=== PATIENT | male | born 1930 | race Two or more races ===

== ENCOUNTER 2017-07-22 06:05 | Inpatient (IN) | payer MEDICARE, MEDICAID ==
[~2017-07-22] VITALS: Ht 160 cm; Wt 70.0 kg
[~2017-07-22 06:05] MED LIST: RANI150T23 PO
[2017-07-22] MEDS ORDERED: MULT-758 PO (06:27)
[2017-07-22] MEDS ORDERED: ASPI-515 PO (06:27)
[2017-07-22] MEDS ORDERED: SODIUM CHLORIDE 0.9% 1,000ML IVBOLUS ONE (07:00)
[2017-07-22] MEDS ORDERED: SODIUM CHLORIDE FLUSH 10ML SYR IVF ONE (07:00)
[2017-07-22 07:01] LABS: BASOPHILS # (AUTO) 0.01 x10^3/uL (0-0.1); BASOPHILS % (AUTO) 0 % (0-1); EOSINOPHILS # (AUTO) 0.01 x10^3/uL (0-0.4); EOSINOPHILS % (AUTO) 0 % (1-7); LYMPHOCYTES # (AUTO) 0.75 x10^3/uL (1-3.4); LYMPHOCYTES % (AUTO) 10 % (22-44); MD NO; MEAN CORPUSCULAR HEMOGLOBIN 31.7 pg (27.5-34.5); MEAN CORPUSCULAR HGB CONC 33.3 g/dL (33.2-36.2); MEAN CORPUSCULAR VOLUME 95.3 fL (81-97); MEAN PLATELET VOLUME 8.9 fL (7.4-10.4); MONOCYTES # (AUTO) 0.73 x10^3/uL (0.2-0.8); MONOCYTES % (AUTO) 9 % (2-9); NEUTROPHILS # (AUTO) 6.34 x10^3/uL (1.8-6.8); NEUTROPHILS % (AUTO) 81 % (42-75); PLATELET COUNT 169 x10^3/uL (130-400); RED BLOOD COUNT 4.78 x10^6/uL (4.38-5.82); RED CELL DISTRIBUTION WIDTH 14.9 % (9.4-14.8)
[2017-07-22 07:10] LABS: CHLORIDE 104 mmol/L (98-107)
[2017-07-22 07:11] LABS: ALANINE AMINOTRANSFERASE 15 U/L (12-78); ALBUMIN 2.8 g/dL (3.4-5.0); ANION GAP 7 mmol/L (5-15); CALCIUM 9.2 mg/dL (8.5-10.1); CREATININE 1.34 mg/dL (0.7-1.3)
[2017-07-22 07:13] LABS: ALKALINE PHOSPHATASE 83 U/L (45-117); BILIRUBIN,TOTAL 2.4 mg/dL (0.2-1.0); TOTAL PROTEIN 7.7 g/dL (6.4-8.2)
[2017-07-22 07:21] LABS: MICROSCOPIC INDICATED
[2017-07-22 07:31] LABS: CULTURE INDICATED? NO
[2017-07-22] MEDS ORDERED: PINK LADY ENEMA 1,000 ML PR ONE (09:00)
[2017-07-22] MEDS ORDERED: DIAZEPAM 5 MG/ML, 2ML IM ONE (11:00)
[2017-07-22 13:23] VITALS: BP 150/84
[2017-07-22] MEDS ORDERED: ONDANSETRON 2MG/ML, 2ML IVPush PRN ×2 (13:30→22:00)
[2017-07-22] MEDS ORDERED: ENOXAPARIN 40 MG/0.4 ML SQ SCH (13:30)
[2017-07-22] MEDS ORDERED: ONDANSETRON ODT 4 MG PO PRN (13:30)
[2017-07-22] MEDS ORDERED: LABETALOL 5MG/ML, 20ML IVPush PRN (13:30)
[2017-07-22] MEDS ORDERED: BISACODYL 10 MG SUPP PR PRN (13:30)
[2017-07-22 14:34] LABS: FREE T4 (FREE THYROXINE) 1.89 ng/dL (0.76-1.46); THYROID STIMULATING HORMONE 3.25 mIU/L (0.358-3.740)
[2017-07-22] MEDS ORDERED: OMNIPAQUE 350 MG/ML, 100ML BOTTLE ONE (15:00)
[2017-07-22] MEDS: PANTOPRAZOLE 40 MG IV IVPush SCH (15:08)
[2017-07-22] MEDS ORDERED: D5%-LACTATED RINGERS 1,000 ML IV SCH (17:00)
[2017-07-22] MEDS ORDERED: MIDAZOLAM 1 MG/ML, 2ML ONE (18:17)
[2017-07-22] MEDS ORDERED: FENTANYL PF 100 MCG/2ML ONE (18:18)
[2017-07-22] MEDS ORDERED: AMIODARONE 50 MG/ML, 3ML ONE ×2 (18:19→22:04)
[2017-07-22] MEDS ORDERED: SUCCINYLCHOLINE 20 MG/ML, 10ML ONE (18:19)
[2017-07-22] MEDS ORDERED: NEOSTIGMINE 1 MG/ML, 10ML ONE (18:19)
[2017-07-22] MEDS ORDERED: PROPOFOL 10 MG/ML, 20ML ONE (18:19)
[2017-07-22] MEDS ORDERED: ONDANSETRON 2MG/ML, 2ML ONE (18:19)
[2017-07-22] MEDS ORDERED: DEXAMETHASONE 4 MG/ML, 1ML ONE (18:19)
[2017-07-22] MEDS ORDERED: KETOROLAC 30 MG/1 ML ONE (18:19)
[2017-07-22] MEDS ORDERED: ROCURONIUM 10 MG/ML,10ML ONE (18:19)
[2017-07-22] MEDS ORDERED: GLYCOPYRROLATE 0.2MG/1ML, 5ML ONE (18:19)
[2017-07-22] MEDS ORDERED: CEFTRIAXONE 1,000 MG ONE (18:33)
[2017-07-22] MEDS ORDERED: CEFOTETAN PMX 1GM/50ML 50 ML ONE ×2 (18:35→18:36)
[2017-07-22] MEDS ORDERED: ALBUTEROL SULFATE 2.5 MG/3 ML NPPB PRN (19:00)
[2017-07-22] MEDS ORDERED: FENTANYL PF 100 MCG/2ML IV PRN (19:00)
[2017-07-22] MEDS ORDERED: ACETAMINOPHEN 325 MG TABLET PO PRN (19:00)
[2017-07-22] MEDS ORDERED: PROMETHAZINE 25 MG/ML, 1ML IV PRN (19:00)
[2017-07-22] MEDS ORDERED: EPHEDRINE 50 MG/ML, 1ML IVPush PRN (19:00)
[2017-07-22] MEDS ORDERED: OXYcodone 5 MG/5 ML ORAL.SOL UDC PO PRN (19:00)
[2017-07-22] MEDS ORDERED: hydrALAzine 20 MG/ML, 1ML IV PRN (19:00)
[2017-07-22] MEDS ORDERED: LABETALOL 5MG/ML, 20ML IV PRN (19:00)
[2017-07-22] MEDS ORDERED: METOPROLOL 1 MG/ML, 5ML IV PRN (19:00)
[2017-07-22] MEDS ORDERED: HALOPERIDOL 5 MG/ML IV PRN (19:00)
[2017-07-22] MEDS ORDERED: MIDAZOLAM 1 MG/ML, 2ML IV PRN (19:00)
[2017-07-22] MEDS ORDERED: ALBUTEROL/IPRATROPIUM 2.5MG/0.5MG, 3 ML NPPB PRN (19:00)
[2017-07-22] MEDS ORDERED: HYDROcodone/APAP 7.5-325MG/15ML UDC PO PRN (19:00)
[2017-07-22] MEDS ORDERED: HYDROmorphone 1 MG/ML, 1ML ONE (20:10)
[2017-07-22] MEDS: HYDROmorphone 1 MG/ML, 1ML IV PRN ×2 (20:14→20:24)
[2017-07-22] MEDS: PIPERACILLIN/TAZO/PMX 3.375GM 50 ML IV SCH (21:37)
[2017-07-22] MEDS ORDERED: morphine SULFATE 10 MG/ML, 1ML IVPush PRN (22:00)
[2017-07-22] MEDS ORDERED: LACTATED RINGERS 1,000 ML IV SCH (22:00)
[2017-07-22 22:39] LABS: BASOPHILS # (AUTO) 0.01 x10^3/uL (0-0.1); BASOPHILS % (AUTO) 0 % (0-1); EOSINOPHILS # (AUTO) 0.01 x10^3/uL (0-0.4); EOSINOPHILS % (AUTO) 0 % (1-7); LYMPHOCYTES # (AUTO) 0.36 x10^3/uL (1-3.4); LYMPHOCYTES % (AUTO) 10 % (22-44); MD NO; MEAN CORPUSCULAR HGB CONC 34.1 g/dL (33.2-36.2); MEAN CORPUSCULAR VOLUME 96.7 fL (81-97); MEAN PLATELET VOLUME 8.7 fL (7.4-10.4); MONOCYTES # (AUTO) 0.66 x10^3/uL (0.2-0.8); MONOCYTES % (AUTO) 18 % (2-9); NEUTROPHILS # (AUTO) 2.67 x10^3/uL (1.8-6.8); NEUTROPHILS % (AUTO) 72 % (42-75); PLATELET COUNT 156 x10^3/uL (130-400); RED BLOOD COUNT 4.09 x10^6/uL (4.38-5.82); RED CELL DISTRIBUTION WIDTH 15.1 % (9.4-14.8)
[2017-07-22] MEDS: MORPHINE 30MG/30ML PCA.SYR IV PRN (22:39)
[2017-07-22 22:44] LABS: ANION GAP 7 mmol/L (5-15); CALCIUM 8.3 mg/dL (8.5-10.1); CHLORIDE 104 mmol/L (98-107); CREATININE 1.46 mg/dL (0.7-1.3)
[2017-07-23 00:27] VITALS: BP 114/73
[2017-07-23] MEDS: D5%-LACTATED RINGERS 1,000 ML IV SCH ×3 (01:37→18:49)
[2017-07-23] MEDS: PIPERACILLIN/TAZO/PMX 3.375GM 50 ML IV SCH ×4 (03:59→21:50)
[2017-07-23] MEDS: PANTOPRAZOLE 40 MG IV IVPush SCH ×2 (03:59→16:06)
[2017-07-23 05:28] LABS: MEAN CORPUSCULAR HEMOGLOBIN 32.3 pg (27.5-34.5); MEAN CORPUSCULAR HGB CONC 33.6 g/dL (33.2-36.2); MEAN CORPUSCULAR VOLUME 96.1 fL (81-97); MEAN PLATELET VOLUME 8.6 fL (7.4-10.4); PLATELET COUNT 172 x10^3/uL (130-400); RED BLOOD COUNT 4.14 x10^6/uL (4.38-5.82)
[2017-07-23 05:29] LABS: ANION GAP 9 mmol/L (5-15); CALCIUM 8.3 mg/dL (8.5-10.1); CHLORIDE 107 mmol/L (98-107)
[2017-07-23 05:33] LABS: ALANINE AMINOTRANSFERASE 13 U/L (12-78); ALKALINE PHOSPHATASE 60 U/L (45-117); BILIRUBIN,TOTAL 4.2 mg/dL (0.2-1.0); CREATININE 1.42 mg/dL (0.7-1.3); TOTAL PROTEIN 5.8 g/dL (6.4-8.2)
[2017-07-23 05:54] LABS: MD YES
[2017-07-23 05:57] LABS: LYMPH#(MANUAL) 0.78 x10^3/uL (1-3.4); LYMPHS% (MANUAL) 13 % (22-44); MONOS% (MANUAL) 10 % (2-9)
[2017-07-23 05:59] LABS: <PLATELET ESTIMATE> ADEQUATE; <PLT MORPHOLOGY> NORMAL PLT MORPH; ANISOCYTOSIS 1+
[2017-07-23 06:01] LABS: BANDS%(MANUAL) 10 % (0-7); SEG#(MANUAL) 4.02 x10^3/uL (1.8-6.8); SEGS% (MANUAL) 67 % (42-75)
[2017-07-23 07:12] VITALS: BP 123/75
[2017-07-23] MEDS: ENOXAPARIN 40 MG/0.4 ML SQ SCH (09:19)
[2017-07-23] MEDS: MULTIVITAMINS/MINERALS TABLET PO SCH (09:19)
[2017-07-23 12:32] VITALS: BP 102/67
[2017-07-23 20:21] VITALS: BP 102/67
[2017-07-24] MEDS: D5%-LACTATED RINGERS 1,000 ML IV SCH ×3 (03:03→23:00)
[2017-07-24] MEDS: PIPERACILLIN/TAZO/PMX 3.375GM 50 ML IV SCH ×4 (03:47→23:00)
[2017-07-24] MEDS: PANTOPRAZOLE 40 MG IV IVPush SCH ×2 (03:47→16:40)
[2017-07-24 04:03] VITALS: BP 114/74
[2017-07-24 05:27] LABS: BASOPHILS # (AUTO) 0.03 x10^3/uL (0-0.1); BASOPHILS % (AUTO) 0 % (0-1); EOSINOPHILS # (AUTO) 0.01 x10^3/uL (0-0.4); EOSINOPHILS % (AUTO) 0 % (1-7); LYMPHOCYTES # (AUTO) 0.62 x10^3/uL (1-3.4); LYMPHOCYTES % (AUTO) 8 % (22-44); MD NO; MEAN CORPUSCULAR HEMOGLOBIN 32.6 pg (27.5-34.5); MEAN CORPUSCULAR HGB CONC 33.6 g/dL (33.2-36.2); MEAN CORPUSCULAR VOLUME 96.9 fL (81-97); MEAN PLATELET VOLUME 8.9 fL (7.4-10.4); MONOCYTES # (AUTO) 0.96 x10^3/uL (0.2-0.8); MONOCYTES % (AUTO) 12 % (2-9); NEUTROPHILS # (AUTO) 6.48 x10^3/uL (1.8-6.8); NEUTROPHILS % (AUTO) 80 % (42-75); PLATELET COUNT 146 x10^3/uL (130-400)
[2017-07-24 05:28] LABS: ANION GAP 9 mmol/L (5-15); CALCIUM 8.8 mg/dL (8.5-10.1); CHLORIDE 107 mmol/L (98-107); CREATININE 1.32 mg/dL (0.7-1.3)
[2017-07-24 07:30] VITALS: BP 113/69
[2017-07-24] MEDS: MULTIVITAMINS/MINERALS TABLET PO SCH (09:53)
[2017-07-24] MEDS: ENOXAPARIN 40 MG/0.4 ML SQ SCH (09:53)
[2017-07-24 14:00] VITALS: BP 125/70
[2017-07-24] MEDS: MORPHINE 30MG/30ML PCA.SYR IV PRN (16:46)
[2017-07-24 19:57] VITALS: BP 124/77
[2017-07-25 00:43] VITALS: BP 138/75
[2017-07-25] MEDS: PANTOPRAZOLE 40 MG IV IVPush SCH ×2 (05:13→21:45)
[2017-07-25] MEDS: PIPERACILLIN/TAZO/PMX 3.375GM 50 ML IV SCH ×2 (05:13→11:40)
[2017-07-25 05:28] LABS: BASOPHILS # (AUTO) 0.01 x10^3/uL (0-0.1); BASOPHILS % (AUTO) 0 % (0-1); EOSINOPHILS % (AUTO) 0 % (1-7); LYMPHOCYTES # (AUTO) 0.89 x10^3/uL (1-3.4); LYMPHOCYTES % (AUTO) 12 % (22-44); MD NO; MEAN CORPUSCULAR HEMOGLOBIN 32.4 pg (27.5-34.5); MEAN CORPUSCULAR HGB CONC 33.4 g/dL (33.2-36.2); MEAN CORPUSCULAR VOLUME 97.1 fL (81-97); MEAN PLATELET VOLUME 8.6 fL (7.4-10.4); MONOCYTES % (AUTO) 12 % (2-9); NEUTROPHILS # (AUTO) 5.78 x10^3/uL (1.8-6.8); NEUTROPHILS % (AUTO) 76 % (42-75); PLATELET COUNT 165 x10^3/uL (130-400); RED BLOOD COUNT 3.79 x10^6/uL (4.38-5.82); RED CELL DISTRIBUTION WIDTH 15.3 % (9.4-14.8)
[2017-07-25 05:35] LABS: ALANINE AMINOTRANSFERASE 17 U/L (12-78); ALBUMIN 1.9 g/dL (3.4-5.0); ANION GAP 7 mmol/L (5-15); CALCIUM 8.5 mg/dL (8.5-10.1); CHLORIDE 107 mmol/L (98-107); CREATININE 1.25 mg/dL (0.7-1.3)
[2017-07-25 05:37] LABS: ALKALINE PHOSPHATASE 57 U/L (45-117); BILIRUBIN,TOTAL 4.4 mg/dL (0.2-1.0); TOTAL PROTEIN 5.9 g/dL (6.4-8.2)
[2017-07-25 06:54] VITALS: BP 128/73
[2017-07-25 09:02] LABS: BILIRUBIN, DIRECT 3.4 mg/dL (0.1-0.2); BILIRUBIN,INDIRECT 0.9 mg/dL (0.0-2.0); BILIRUBIN,TOTAL 4.3 mg/dL (0.2-1.0)
[2017-07-25 09:22] LABS: ABSOLUTE RETICS # 0.06 x10^6/uL (0.5-1.5); RED BLOOD COUNT 3.76 x10^6/uL (4.38-5.82); RETICULOCYTE COUNT % 1.59 % (0.5-1.5)
[2017-07-25] MEDS: MULTIVITAMINS/MINERALS TABLET PO SCH (10:22)
[2017-07-25] MEDS: D5%-LACTATED RINGERS 1,000 ML IV SCH (10:22)
[2017-07-25] MEDS: ENOXAPARIN 40 MG/0.4 ML SQ SCH (10:22)
[2017-07-25] MEDS: PIPERACILLIN/TAZO/PMX 4.5GM 100 ML IV SCH ×2 (11:30→21:44)
[2017-07-25 12:31] VITALS: BP 118/59
[2017-07-25 19:39] VITALS: BP 116/71
[2017-07-26] MEDS ORDERED: D5%-LACTATED RINGERS 1,000 ML IV SCH
[2017-07-26 02:12] VITALS: BP 116/72
[2017-07-26] MEDS: PIPERACILLIN/TAZO/PMX 4.5GM 100 ML IV SCH ×4 (03:12→20:39)
[2017-07-26 05:03] LABS: BASOPHILS # (AUTO) 0.03 x10^3/uL (0-0.1); BASOPHILS % (AUTO) 0 % (0-1); EOSINOPHILS # (AUTO) 0.08 x10^3/uL (0-0.4); EOSINOPHILS % (AUTO) 1 % (1-7); LYMPHOCYTES # (AUTO) 1.17 x10^3/uL (1-3.4); LYMPHOCYTES % (AUTO) 16 % (22-44); MD NO; MEAN CORPUSCULAR HEMOGLOBIN 32.4 pg (27.5-34.5); MEAN CORPUSCULAR HGB CONC 33.5 g/dL (33.2-36.2); MEAN CORPUSCULAR VOLUME 96.7 fL (81-97); MEAN PLATELET VOLUME 8.3 fL (7.4-10.4); MONOCYTES # (AUTO) 0.86 x10^3/uL (0.2-0.8); MONOCYTES % (AUTO) 12 % (2-9); NEUTROPHILS # (AUTO) 5.17 x10^3/uL (1.8-6.8); NEUTROPHILS % (AUTO) 71 % (42-75); PLATELET COUNT 209 x10^3/uL (130-400); RED BLOOD COUNT 3.68 x10^6/uL (4.38-5.82); RED CELL DISTRIBUTION WIDTH 15.4 % (9.4-14.8)
[2017-07-26 05:09] LABS: ALBUMIN 1.8 g/dL (3.4-5.0); ANION GAP 7 mmol/L (5-15); CALCIUM 7.9 mg/dL (8.5-10.1); CHLORIDE 106 mmol/L (98-107)
[2017-07-26 05:12] LABS: ALANINE AMINOTRANSFERASE 20 U/L (12-78); ALKALINE PHOSPHATASE 72 U/L (45-117); BILIRUBIN,TOTAL 5.8 mg/dL (0.2-1.0); CREATININE 1.36 mg/dL (0.7-1.3); TOTAL PROTEIN 5.6 g/dL (6.4-8.2)
[2017-07-26 06:51] VITALS: BP 137/85
[2017-07-26] MEDS ORDERED: MORPHINE SULFATE 4 MG/ML, 1ML IVPush PRN (08:00)
[2017-07-26] MEDS: ENOXAPARIN 40 MG/0.4 ML SQ SCH (09:09)
[2017-07-26] MEDS: MULTIVITAMINS/MINERALS TABLET PO SCH (09:09)
[2017-07-26] MEDS: OXYcodone/APAP 5/325MG TABLET PO PRN (10:08)
[2017-07-26 12:04] LABS: INTERNATIONAL NORMALIZED RATIO 1.17 (0.93-1.1)
[2017-07-26 13:14] VITALS: BP 149/89
[2017-07-26] MEDS: BISACODYL 10 MG SUPP PR PRN (18:22)
[2017-07-26 19:10] VITALS: BP 157/89
[2017-07-27] MEDS: OXYcodone/APAP 5/325MG TABLET PO PRN ×3 (01:11→16:08)
[2017-07-27 01:26] VITALS: BP 150/84
[2017-07-27] MEDS: PIPERACILLIN/TAZO/PMX 4.5GM 100 ML IV SCH ×3 (03:08→17:27)
[2017-07-27 05:35] LABS: BASOPHILS # (AUTO) 0.03 x10^3/uL (0-0.1); BASOPHILS % (AUTO) 0 % (0-1); EOSINOPHILS # (AUTO) 0.06 x10^3/uL (0-0.4); EOSINOPHILS % (AUTO) 1 % (1-7); LYMPHOCYTES # (AUTO) 1.04 x10^3/uL (1-3.4); LYMPHOCYTES % (AUTO) 9 % (22-44); MD NO; MEAN CORPUSCULAR HEMOGLOBIN 32.4 pg (27.5-34.5); MEAN CORPUSCULAR HGB CONC 33.7 g/dL (33.2-36.2); MEAN CORPUSCULAR VOLUME 95.9 fL (81-97); MEAN PLATELET VOLUME 8.3 fL (7.4-10.4); MONOCYTES % (AUTO) 9 % (2-9); NEUTROPHILS # (AUTO) 9.14 x10^3/uL (1.8-6.8); NEUTROPHILS % (AUTO) 81 % (42-75); PLATELET COUNT 248 x10^3/uL (130-400); RED BLOOD COUNT 3.76 x10^6/uL (4.38-5.82); RED CELL DISTRIBUTION WIDTH 15.5 % (9.4-14.8)
[2017-07-27 06:48] LABS: ALANINE AMINOTRANSFERASE 21 U/L (12-78); ALBUMIN 1.8 g/dL (3.4-5.0); ALKALINE PHOSPHATASE 73 U/L (45-117); ANION GAP 13 mmol/L (5-15); BILIRUBIN,TOTAL 7.1 mg/dL (0.2-1.0); CALCIUM 8.3 mg/dL (8.5-10.1); CHLORIDE 104 mmol/L (98-107); CREATININE 1.21 mg/dL (0.7-1.3); TOTAL PROTEIN 5.7 g/dL (6.4-8.2)
[2017-07-27 06:53] VITALS: BP 117/64
[2017-07-27] MEDS ORDERED: POTASSIUM CHLORIDE 20 MEQ TAB.ER.PRT PO ONE ×2 (08:00→11:00)
[2017-07-27] MEDS: ENOXAPARIN 40 MG/0.4 ML SQ SCH (09:00)
[2017-07-27] MEDS: MULTIVITAMINS/MINERALS TABLET PO SCH (09:11)
[2017-07-27] MEDS: BISACODYL 10 MG SUPP PR PRN (09:11)
[2017-07-27 12:30] VITALS: BP 158/79
[2017-07-27] MEDS ORDERED: MAGNESIUM CITRATE 300ML ORAL SOL PO PRN (17:30)
[2017-07-27 19:05] VITALS: BP 136/75
[2017-07-28] MEDS: PIPERACILLIN/TAZO/PMX 4.5GM 100 ML IV SCH ×2 (01:09→09:21)
[2017-07-28 01:54] VITALS: BP 134/72
[2017-07-28 05:42] LABS: BASOPHILS # (AUTO) 0.03 x10^3/uL (0-0.1); BASOPHILS % (AUTO) 0 % (0-1); EOSINOPHILS # (AUTO) 0.26 x10^3/uL (0-0.4); EOSINOPHILS % (AUTO) 2 % (1-7); LYMPHOCYTES # (AUTO) 1.18 x10^3/uL (1-3.4); LYMPHOCYTES % (AUTO) 11 % (22-44); MD NO; MEAN CORPUSCULAR HGB CONC 34.5 g/dL (33.2-36.2); MEAN CORPUSCULAR VOLUME 95.5 fL (81-97); MEAN PLATELET VOLUME 8.3 fL (7.4-10.4); MONOCYTES % (AUTO) 6 % (2-9); NEUTROPHILS % (AUTO) 80 % (42-75); PLATELET COUNT 283 x10^3/uL (130-400); RED BLOOD COUNT 3.55 x10^6/uL (4.38-5.82)
[2017-07-28 05:52] LABS: ALANINE AMINOTRANSFERASE 21 U/L (12-78); ALBUMIN 1.8 g/dL (3.4-5.0); ANION GAP 10 mmol/L (5-15); CALCIUM 8.6 mg/dL (8.5-10.1); CHLORIDE 105 mmol/L (98-107); CREATININE 1.07 mg/dL (0.7-1.3)
[2017-07-28 05:54] LABS: ALKALINE PHOSPHATASE 79 U/L (45-117); BILIRUBIN,TOTAL 5.2 mg/dL (0.2-1.0); TOTAL PROTEIN 5.9 g/dL (6.4-8.2)
[2017-07-28 05:55] LABS: BILIRUBIN, DIRECT 3.5 mg/dL (0.1-0.2)
[2017-07-28 06:23] LABS: BILIRUBIN,INDIRECT 1.7 mg/dL (0.0-2.0)
[2017-07-28 07:25] VITALS: BP 145/77
[2017-07-28] MEDS: ENOXAPARIN 40 MG/0.4 ML SQ SCH (09:20)
[2017-07-28] MEDS: MULTIVITAMINS/MINERALS TABLET PO SCH (09:21)
[2017-07-28] MEDS: OXYcodone/APAP 5/325MG TABLET PO PRN ×3 (11:20→20:12)
[2017-07-28 13:26] VITALS: BP 147/75
[2017-07-28] MEDS ORDERED: ERTAPENEM 1 GM in SODIUM CHLORIDE 0.9% 50 ML IV SCH (15:00)
[2017-07-28 19:22] VITALS: BP 148/85
[2017-07-29 01:15] VITALS: BP 137/82
[2017-07-29 05:58] LABS: BASOPHILS # (AUTO) 0.08 x10^3/uL (0-0.1); BASOPHILS % (AUTO) 1 % (0-1); EOSINOPHILS # (AUTO) 0.26 x10^3/uL (0-0.4); EOSINOPHILS % (AUTO) 3 % (1-7); LYMPHOCYTES # (AUTO) 1.66 x10^3/uL (1-3.4); LYMPHOCYTES % (AUTO) 17 % (22-44); MD NO; MEAN CORPUSCULAR HEMOGLOBIN 32.1 pg (27.5-34.5); MEAN CORPUSCULAR HGB CONC 33.7 g/dL (33.2-36.2); MEAN CORPUSCULAR VOLUME 95.3 fL (81-97); MEAN PLATELET VOLUME 7.8 fL (7.4-10.4); MONOCYTES # (AUTO) 0.77 x10^3/uL (0.2-0.8); MONOCYTES % (AUTO) 8 % (2-9); NEUTROPHILS # (AUTO) 6.93 x10^3/uL (1.8-6.8); NEUTROPHILS % (AUTO) 71 % (42-75); PLATELET COUNT 341 x10^3/uL (130-400); RED BLOOD COUNT 3.34 x10^6/uL (4.38-5.82); RED CELL DISTRIBUTION WIDTH 15.7 % (9.4-14.8)
[2017-07-29 06:09] LABS: ALBUMIN 1.9 g/dL (3.4-5.0); ANION GAP 11 mmol/L (5-15); CALCIUM 8.3 mg/dL (8.5-10.1); CHLORIDE 104 mmol/L (98-107)
[2017-07-29 06:12] LABS: ALANINE AMINOTRANSFERASE 19 U/L (12-78); ALKALINE PHOSPHATASE 89 U/L (45-117); BILIRUBIN,TOTAL 3.3 mg/dL (0.2-1.0); CREATININE 0.96 mg/dL (0.7-1.3); TOTAL PROTEIN 5.9 g/dL (6.4-8.2)
[2017-07-29] MEDS: OXYcodone/APAP 5/325MG TABLET PO PRN ×2 (07:45→13:22)
[2017-07-29] MEDS: MULTIVITAMINS/MINERALS TABLET PO SCH (07:45)
[2017-07-29] MEDS: ENOXAPARIN 40 MG/0.4 ML SQ SCH (07:45)
[2017-07-29 07:51] VITALS: BP 135/77
[2017-07-29 07:52] VITALS: BP 156/75
[2017-07-29] MEDS ORDERED: CEFD300C37 PO (08:53)
[2017-07-29] MEDS ORDERED: METR500T PO (08:53)
[2017-07-29] MEDS: metroNIDAZOLE 500 MG TABLET PO SCH ×2 (09:46→16:45)
[2017-07-29] MEDS: CEFDINIR 300 MG CAPSULE PO SCH (09:47)
[2017-07-29 12:17] VITALS: BP 126/71
[2017-07-29 21:32] VITALS: BP 126/58
[2017-07-30] MEDS: metroNIDAZOLE 500 MG TABLET PO SCH ×2 (00:11→09:53)
[2017-07-30 01:27] VITALS: BP 127/71
[2017-07-30] MEDS: OXYcodone/APAP 5/325MG TABLET PO PRN (07:12)
[2017-07-30 08:11] LABS: BASOPHILS # (AUTO) 0.06 x10^3/uL (0-0.1); BASOPHILS % (AUTO) 1 % (0-1); EOSINOPHILS # (AUTO) 0.13 x10^3/uL (0-0.4); EOSINOPHILS % (AUTO) 2 % (1-7); LYMPHOCYTES # (AUTO) 1.13 x10^3/uL (1-3.4); LYMPHOCYTES % (AUTO) 13 % (22-44); MD NO; MEAN CORPUSCULAR HGB CONC 33.5 g/dL (33.2-36.2); MEAN CORPUSCULAR VOLUME 95.7 fL (81-97); MEAN PLATELET VOLUME 7.7 fL (7.4-10.4); MONOCYTES # (AUTO) 0.59 x10^3/uL (0.2-0.8); MONOCYTES % (AUTO) 7 % (2-9); NEUTROPHILS # (AUTO) 6.96 x10^3/uL (1.8-6.8); NEUTROPHILS % (AUTO) 78 % (42-75); PLATELET COUNT 377 x10^3/uL (130-400); RED BLOOD COUNT 3.12 x10^6/uL (4.38-5.82); RED CELL DISTRIBUTION WIDTH 15.5 % (9.4-14.8)
[2017-07-30 08:29] LABS: ALANINE AMINOTRANSFERASE 24 U/L (12-78); ANION GAP 9 mmol/L (5-15); CALCIUM 8.2 mg/dL (8.5-10.1); CHLORIDE 106 mmol/L (98-107); CREATININE 0.96 mg/dL (0.7-1.3)
[2017-07-30 08:32] LABS: ALKALINE PHOSPHATASE 88 U/L (45-117); BILIRUBIN,TOTAL 2.6 mg/dL (0.2-1.0); TOTAL PROTEIN 5.9 g/dL (6.4-8.2)
[2017-07-30 08:34] VITALS: BP 122/73
[2017-07-30] MEDS: MULTIVITAMINS/MINERALS TABLET PO SCH (09:53)
[2017-07-30] MEDS: ENOXAPARIN 40 MG/0.4 ML SQ SCH (09:53)
[2017-07-30] MEDS: CEFDINIR 300 MG CAPSULE PO SCH (09:53)
[2017-07-30 10:51] VITALS: BP 111/82
== END 2017-07-30 13:48 | disposition home or self-care (01) | DRG 853 ==
LOC: ED 08:59 → EDIP 12:05 → 3NE 12:52 → 4EST 17:32
PROVIDERS: ADMIT Internal Medicine Pulmonary Disease; ATTEND Internal Medicine Pulmonary Disease
PROC: 0DBA0ZZ Excision of Jejunum, Open Approach (ICD-10-PCS; principal; 2017-07-22 19:30)
DX: A41.59 Other Gram-negative sepsis (principal); N17.0 Acute kidney failure with tubular necrosis; E43 Unspecified severe protein-calorie malnutrition; K65.1 Peritoneal abscess; K55.029 Acute infarction of small intestine, extent unspecified; D68.69 Other thrombophilia; R17 Unspecified jaundice; D64.9 Anemia, unspecified; F17.210 Nicotine dependence, cigarettes, uncomplicated; I10 Essential (primary) hypertension; I48.91 Unspecified atrial fibrillation; K59.00 Constipation, unspecified; K63.89 Other specified diseases of intestine; M17.0 Bilateral primary osteoarthritis of knee; N28.1 Cyst of kidney, acquired; Z66 Do not resuscitate; Z79.82 Long term (current) use of aspirin; Z86.19 Personal history of other infectious and parasitic diseases; Z87.11 Personal history of peptic ulcer disease; Z68.27 Body mass index [BMI] 27.0-27.9, adult
CPT/HCPCS: 36415; 74021; 74177; 74181; 76700; 76770; 80048; 80053; 81001; 82040; 82247; 82248; 82977; 83010; 83605; 83615; 83690; 83735; 84100; 84439; 84443; 85025; 85045; 85610; 87040; 87070; 87075; 87077; 87186; 87205; 88307; 93005; 96360; 96372; J0696; J1100; J1170; J1335; J1650; J1885; J2250; J2270; J2405; J2543; J2704; J2710; J3010; J3360; J3490; Q9967; C9113; J0282; J0330; J7030; J7120; J7121; S0074

== ENCOUNTER 2018-05-27 11:03 | Observation (INO) | payer MEDICARE, MEDICAID ==
[~2018-05-27] VITALS: Ht 167.6 cm; Wt 62.8 kg
[~2018-05-27 11:03] MED LIST changes: +ASPI-515 PO; +CEFD300C37 PO; +METR500T PO; +MULT-758 PO
[2018-05-27] MEDS: SODIUM CHLORIDE 0.9% 1,000 ML IV SCH (11:41)
[2018-05-27] MEDS ORDERED: CEFAZOLIN PMX 1GM/50ML 50 ML IVPB ONE (12:00)
[2018-05-27] MEDS ORDERED: APIX2.5T PO (12:08)
[2018-05-27 12:21] VITALS: BP 173/79
[2018-05-27 13:08] LABS: BASOPHILS # (AUTO) 0.03 x10^3/uL (0-0.1); BASOPHILS % (AUTO) 0 % (0-1); EOSINOPHILS # (AUTO) 0.08 x10^3/uL (0-0.4); EOSINOPHILS % (AUTO) 1 % (1-7); LYMPHOCYTES # (AUTO) 2.41 x10^3/uL (1-3.4); LYMPHOCYTES % (AUTO) 34 % (22-44); MD NO; MEAN CORPUSCULAR HGB CONC 33.7 g/dL (33.2-36.2); MEAN CORPUSCULAR VOLUME 97.9 fL (81-97); MONOCYTES # (AUTO) 0.52 x10^3/uL (0.2-0.8); MONOCYTES % (AUTO) 7 % (2-9); NEUTROPHILS # (AUTO) 4.14 x10^3/uL (1.8-6.8); NEUTROPHILS % (AUTO) 58 % (42-75); PLATELET COUNT 164 x10^3/uL (130-400); RED BLOOD COUNT 5.16 x10^6/uL (4.38-5.82); RED CELL DISTRIBUTION WIDTH 14.3 % (9.4-14.8)
[2018-05-27 13:15] LABS: INTERNATIONAL NORMALIZED RATIO 1.08 (0.93-1.1); PROTHROMBIN TIME 11.3 Seconds (9.6-11.5)
[2018-05-27 13:18] LABS: ANION GAP 6 mmol/L (5-15); CALCIUM 9.7 mg/dL (8.5-10.1); CHLORIDE 108 mmol/L (98-107); CREATININE 1.27 mg/dL (0.7-1.3)
[2018-05-27] MEDS ORDERED: CEFAZOLIN 1,000 MG ONE (13:25)
[2018-05-27] MEDS ORDERED: MIDAZOLAM 1 MG/ML, 5ML ONE (13:25)
[2018-05-27] MEDS ORDERED: LIDOCAINE 2%, 20ML ONE (13:25)
[2018-05-27] MEDS ORDERED: CEFAZOLIN PMX 1GM/50ML 50 ML ONE (13:25)
[2018-05-27] MEDS ORDERED: FENTANYL PF 100 MCG/2ML ONE (13:25)
[2018-05-27] MEDS ORDERED: HOLD MEDICATION MC PRN (16:00)
[2018-05-27] MEDS ORDERED: HYDROcodone/APAP 5/325 TABLET PO PRN (16:00)
[2018-05-27 19:47] VITALS: BP 125/73
[2018-05-28] MEDS: SODIUM CHLORIDE FLUSH 10ML SYR IVF SCH ×2 (00:17→08:15)
[2018-05-28] MEDS: CEFAZOLIN PMX 1GM/50ML 50 ML IVPB SCH ×2 (00:17→05:59)
[2018-05-28] MEDS: SODIUM CHLORIDE 0.9% 1,000 ML IV SCH (00:17)
[2018-05-28 02:29] VITALS: BP 153/82
[2018-05-28 07:59] VITALS: BP 153/87
[2018-05-28] MEDS ORDERED: ACET325T14 PO (07:59)
[2018-05-28] MEDS ORDERED: ACETAMINOPHEN 325 MG TABLET PO PRN (08:00)
[2018-05-28] MEDS ORDERED: MULTIVITAMINS/MINERALS TABLET PO SCH (09:00)
== END 2018-05-28 14:54 | disposition home or self-care (01) ==
LOC: CACL 11:03 → 5SO 15:04 → CACL 23:57 → 5SO 23:58 → CACL 05-28 00:02 → DCLOUNGE 05-28 14:41
PROVIDERS: ADMIT Internal Medicine Cardiovascular Disease; ATTEND Internal Medicine Cardiovascular Disease
DX: R00.1 Bradycardia, unspecified (principal); I48.1 Persistent atrial fibrillation; R53.83 Other fatigue
CPT/HCPCS: 33207; 36415; 71045; 71046; 80048; 85025; 85610; 93005; 96365; 96366; 99156; C1779; C1786; C1892; G0378; J0690; J2250; J3010; J3490

== ENCOUNTER 2019-09-04 14:14 | Emergency (ER) | payer MEDICAID, MEDICARE ==
[~2019-09-04] VITALS: Ht 167.6 cm; Wt 69.0 kg
[~2019-09-04 14:14] MED LIST changes: +ACET325T14 PO; +APIX2.5T PO; +RANI-467 PO; -RANI150T23 PO
[2019-09-04 14:59] LABS: BASOPHILS # (AUTO) 0.03 x10^3/uL (0-0.1); BASOPHILS % (AUTO) 1 % (0-1); EOSINOPHILS # (AUTO) 0.04 x10^3/uL (0-0.4); EOSINOPHILS % (AUTO) 1 % (1-7); LYMPHOCYTES # (AUTO) 1.58 x10^3/uL (1-3.4); LYMPHOCYTES % (AUTO) 27 % (22-44); MD NO; MEAN CORPUSCULAR HEMOGLOBIN 32.9 pg (27.5-34.5); MEAN CORPUSCULAR HGB CONC 32.4 g/dL (33.2-36.2); MEAN CORPUSCULAR VOLUME 101.4 fL (81-97); MEAN PLATELET VOLUME 7.8 fL (7.4-10.4); MONOCYTES # (AUTO) 0.77 x10^3/uL (0.2-0.8); MONOCYTES % (AUTO) 13 % (2-9); NEUTROPHILS # (AUTO) 3.41 x10^3/uL (1.8-6.8); NEUTROPHILS % (AUTO) 59 % (42-75); PLATELET COUNT 208 x10^3/uL (130-400); RED BLOOD COUNT 4.06 x10^6/uL (4.38-5.82); RED CELL DISTRIBUTION WIDTH 15.3 % (9.4-14.8)
[2019-09-04 15:01] LABS: ALANINE AMINOTRANSFERASE 40 U/L (12-78); ALBUMIN 3.3 g/dL (3.4-5.0); ANION GAP 10 mmol/L (5-15); CALCIUM 9.1 mg/dL (8.5-10.1); CHLORIDE 109 mmol/L (98-107); CREATININE 1.35 mg/dL (0.7-1.3)
[2019-09-04 15:11] LABS: ALKALINE PHOSPHATASE 99 U/L (45-117); BILIRUBIN,TOTAL 1.5 mg/dL (0.2-1.0); TOTAL PROTEIN 7.4 g/dL (6.4-8.2)
--- NOTE | 2019-09-04 15:25 | NUR ---
PT IN HOSPITAL GOWN, ON VITALS MONITORS. PT CALM WATCHING MOVIE ON TV. CALL LIGHT WITHIN REACH. SUPERVISOR PIPE FINISHING IN TO SEE PT AT THIS TIME.
[2019-09-04 15:29] VITALS: BP 161/83
[2019-09-04 15:57] LABS: MICROSCOPIC NOT IND
== END 2019-09-04 16:48 | disposition home or self-care (01) ==
LOC: ED 15:45
DX: G30.1 Alzheimer's disease with late onset (principal); F02.81 Dementia in other diseases classified elsewhere, unspecified severity, with behavioral disturbance; R94.31 Abnormal electrocardiogram [ECG] [EKG]; I10 Essential (primary) hypertension; I48.91 Unspecified atrial fibrillation; Z87.11 Personal history of peptic ulcer disease
CPT/HCPCS: 36415; 71045; 80053; 81003; 83880; 84443; 85025; 93005; 99285